=== PATIENT | male | born 1970 | race Caucasian/White ===

== ENCOUNTER → 2016-06-05 | Outpatient (CLI) | payer OTHER | END | disposition home or self-care (01) | LOC: C.RDSM 13:53 | PROVIDERS: ATTEND Physical Medicine & Rehabilitation Sports Medicine | DX: M25.561 Pain in right knee (principal) ==

== ENCOUNTER → 2016-10-18 | Outpatient (CLI) | payer OTHER ==
--- NOTE | 2016-10-19 15:33 | CODING QUERY MEDICAL NECESSITY ---
SUPPORTING DIAGNOSIS NEEDED A supporting diagnosis is required for the test/procedure performed on this patient in order for us to be reimbursed by the patient's insurance. Please provide a supporting diagnosis for the following test/procedure listed below next to the test name along with your signature. *If there is no additional diagnosis for this patient that would support the following test/procedure please document that below next to the test/procedure. Test(s)/Procedure(s) that require a supporting diagnosis: * IMMUNOGLOBULN A DIAGNOSIS: * ANTI-GLIADIN IgG AND Iga ab DIAGNOSIS: * TRANSGLUTAMINASE igA AB DIAGNOSIS: * TRANSGLUTAMINASE IgG AB DIAGNOSIS: Provider Signature: Date: Thank you [employer] Once completed, please kindly fax back to [phone] For questions please call [phone]
[2016-10-19 23:00] LABS: GLIADIN DEAMIDATED IgA AB 5 UNITS (<20); GLIADIN DEAMIDATED IgG AB 2 UNITS (<20)
[2016-10-21 08:32] LABS: IGA SERUM 186 mg/dL (81-463); TIS TRANS IGA 1 U/mL (<4)
== END | disposition home or self-care (01) ==
LOC: C.LAB 08:06
PROVIDERS: ATTEND Internal Medicine Gastroenterology
DX: Z00.00 Encounter for general adult medical examination without abnormal findings (principal); D64.9 Anemia, unspecified

== ENCOUNTER → 2016-10-26 | Outpatient (CLI) | payer OTHER ==
--- NOTE | 2016-10-26 07:55 | DIAGNOSTIC IMAGING REPORT ---
RIGHT LOWER EXT JOINT WITHOUT CLINICAL HISTORY: Distal femoral metaphyseal lesion. Follow-up study COMPARISON STUDY: Conventional radiographic study dated 06/05/2016, MRI dated 03/02/2016 FINDINGS: The patient was imaged in the sagittal, coronal, and axial planes. The patellar retinacular structures appear intact. No cartilaginous lesions are visualized. The quadriceps and patellar tendons appear intact. The anterior and posterior cruciate ligaments appear intact. There is minimal edema surrounding the posterior cruciate ligament. The medial and lateral collateral ligaments appear intact. Within the medial distal femoral metadiaphysis, there is a partially visualized 5 x 21 x 25 mm lesion. There is no associated soft tissue mass. There is no cortical destruction. The mass demonstrates increased T1 signal with partial suppression on fat saturated sequences consistent with fat. There are serpentine T1 hypodense margins. There is a narrow zone of transition. There is minimal increased T2 signal within the lesion. IMPRESSION: 1. No evidence of cruciate or collateral ligament disruption. Minimal nonspecific edema surrounding the posterior cruciate ligament 2. No evidence of meniscal tear 3. Stable fat-containing intramedullary lesion within the distal medial metadiaphyseal femur. There is no cortical disruption. There is no associated soft tissue mass. This lesion has nonaggressive imaging characteristics. Likely diagnostic considerations include a healing nonossifying fibroma, or intraosseous lipoma. Electronically signed by: Adiel Hooker M.D. 10/26/2016 7:53 AM Dictated Date/Time: 10/26/2016 7:31 AM
[2016-10-26 09:41] LABS: BASO % 0.5 %; BASO ABS # 0.03 K/uL (0-0.2); COMPLETE YES; EOS % 1.6 %; HEMATOCRIT 42.9 % (42-52); IG% 0.2 %; LYMPH % 31.6 %; LYMPH ABS # 1.97 K/uL (1.2-3.4); MEAN CELL VOLUME 89.6 fL (80-100); MEAN CORPUSCULAR HEMOGLOBIN 29.6 pg (25-34); MEAN CORPUSCULAR HGB CONC 33.1 g/dl (32-36); MEAN PLATELET VOLUME 9.9 fL (7.4-10.4); MONO % 6.7 %; NEUT % 59.4 %; PLATELET COUNT 278 K/uL (130-400); RED BLOOD COUNT 4.79 M/uL (4.7-6.1); WHITE BLOOD COUNT 6.24 K/uL (4.8-10.8)
[2016-10-26 10:01] LABS: ALT/SGPT 34 U/L (12-78); BLOOD UREA NITROGEN 14 mg/dl (7-18); BUN/CREATININE RATIO 13.9 (10-20); CALCIUM 9.4 mg/dl (8.5-10.1); CARBON DIOXIDE 30 mmol/L (21-32); CHLORIDE 104 mmol/L (98-107); CHOLESTEROL 185 mg/dl (0-200); CREATININE 0.97 mg/dl (0.60-1.40); GLUCOSE 79 mg/dl (70-99); SODIUM 138 mmol/L (136-145)
[2016-10-26 10:09] LABS: ALB/GLOB RATIO 1.1 (0.9-2); ALKALINE PHOSPHATASE 46 U/L (45-117); AST/SGOT 24 U/L (15-37); CHOLESTEROL/HDL RATIO 3.4; FERRITIN 46.8 ng/ml (8.0-388.0); HDL CHOLESTEROL 55 mg/dl; LDL CHOLESTEROL CALCULATED 116 mg/dl; TRIGLYCERIDES 69 mg/dl (0-150); VERY LOW DENSITY LIPOPROT CALC 14 mg/dl
== END | disposition home or self-care (01) ==
LOC: C.MRI 06:37
PROVIDERS: ATTEND Internal Medicine
DX: Z00.00 Encounter for general adult medical examination without abnormal findings (principal); Q74.2 Other congenital malformations of lower limb(s), including pelvic girdle; D64.9 Anemia, unspecified

== ENCOUNTER → 2016-12-11 | Outpatient (CLI) | payer OTHER | END | disposition home or self-care (01) | LOC: C.RDSM 12:12 | PROVIDERS: ATTEND Physical Medicine & Rehabilitation Sports Medicine | DX: M25.561 Pain in right knee (principal) ==

== ENCOUNTER → 2017-10-23 | Outpatient (CLI) | payer OTHER ==
[2017-10-23 09:35] LABS: BASO % 0.5 %; BASO ABS # 0.03 K/uL (0-0.2); EOS % 1.9 %; EOS ABS # 0.12 K/uL (0-0.5); HEMATOCRIT 44.2 % (42-52); IG# 0.02 K/uL (0.00-0.02); LYMPH % 30.1 %; LYMPH ABS # 1.92 K/uL (1.2-3.4); MEAN CORPUSCULAR HEMOGLOBIN 30.5 pg (25-34); MEAN CORPUSCULAR HGB CONC 33.9 g/dl (32-36); MEAN PLATELET VOLUME 10.2 fL (7.4-10.4); MONO % 6.3 %; NEUT % 60.9 %; NEUT ABS # 3.89 K/uL (1.4-6.5); PLATELET COUNT 266 K/uL (130-400); RED CELL DISTRIBUTION WIDTH CV 12.3 % (11.5-14.5); WHITE BLOOD COUNT 6.38 K/uL (4.8-10.8)
[2017-10-23 09:55] LABS: ALBUMIN 4.3 gm/dl (3.4-5.0); ALKALINE PHOSPHATASE 46 U/L (45-117); ALT/SGPT 32 U/L (12-78); AST/SGOT 22 U/L (15-37); BLOOD UREA NITROGEN 14 mg/dl (7-18); CALCIUM 9.6 mg/dl (8.5-10.1); CARBON DIOXIDE 31 mmol/L (21-32); CHOLESTEROL 197 mg/dl (0-200); CREATININE 1.11 mg/dl (0.60-1.40); GLUCOSE 92 mg/dl (70-99); LDL CHOLESTEROL CALCULATED 124 mg/dl; POTASSIUM 4.4 mmol/L (3.5-5.1); SODIUM 139 mmol/L (136-145); TOTAL PROTEIN 8.3 gm/dl (6.4-8.2)
== END | disposition home or self-care (01) ==
LOC: C.LAB 08:20
PROVIDERS: ATTEND Internal Medicine
DX: Z00.00 Encounter for general adult medical examination without abnormal findings (principal); D64.9 Anemia, unspecified